=== PATIENT | female | born 1980 | race Caucasian/White ===

== ENCOUNTER → 2017-10-25 | Outpatient (CLI) | payer BC ==
--- NOTE | 2017-10-25 10:41 | MM ---
Reason for exam: additional evaluation requested from prior study. Last mammogram was performed 1 year and 1 month ago. History: Patient is postmenopausal. Family history of breast cancer in cousin at age 47 and breast cancer in cousin at age 53. Excisional biopsy of the left breast, 2003. Took hormonal contraceptives for 8 years beginning at age 19. Physical Findings: Nurse did not find any significant physical abnormalities on exam. MG Diagnostic Mammo w CAD OZZY Bilateral CC and MLO view(s) were taken. XCCL view(s) were taken of the right breast. Prior study comparison: September 12, 2016, bilateral MG diagnostic mammo w CAD OZZY. The breast tissue is heterogeneously dense. This may lower the sensitivity of mammography. Stable benign calcifications. There is chronic nodularity bilaterally.3 No significant new findings when compared with previous films. These results were verbally communicated with the patient and result sheet given to the patient on 10/25/17. ASSESSMENT: Benign, BI-RAD 2 RECOMMENDATION: Routine screening mammogram of both breasts in 1 year. Manage patient on a clinical basis.
== END ==
LOC: RADMAMWWP 08:53
PROVIDERS: ATTEND Obstetrics & Gynecology
DX: R92.8 Other abnormal and inconclusive findings on diagnostic imaging of breast (principal)
CPT/HCPCS: 77066

== ENCOUNTER → 2018-12-10 | Outpatient (CLI) | payer BC ==
--- NOTE | 2018-12-12 10:29 | MM ---
Reason for exam: screening (asymptomatic). Last mammogram was performed 1 year and 1 month ago. History: Patient is postmenopausal. Family history of breast cancer in cousin at age 47 and breast cancer in cousin at age 53. Excisional biopsy of the left breast, 2003. Took hormonal contraceptives for 8 years beginning at age 19. Physical Findings: A clinical breast exam by your physician is recommended on an annual basis and results should be correlated with mammographic findings. MG Screening Mammo w CAD Bilateral CC and MLO view(s) were taken. Prior study comparison: October 25, 2017, bilateral MG diagnostic mammo w CAD OZZY. September 12, 2016, bilateral MG diagnostic mammo w CAD OZZY. There are scattered fibroglandular densities. There is chronic nodularity bilaterally. Two medial nodules right CC view at an anterior depth and middle depth not seen on XCCL or MLO views. ASSESSMENT: Probably benign, BI-RAD 3 RECOMMENDATION: Follow-up diagnostic mammogram of the right breast in 6 months.
== END | disposition home or self-care (01) ==
LOC: RADMAMWWP 16:12
PROVIDERS: ATTEND Obstetrics & Gynecology
DX: Z12.31 Encounter for screening mammogram for malignant neoplasm of breast (principal)
CPT/HCPCS: 77067

== ENCOUNTER → 2019-06-24 | Outpatient (CLI) | payer BC ==
--- NOTE | 2019-06-25 08:07 | MM ---
Reason for exam: follow-up at short interval from prior study. Last mammogram was performed 6 months ago. History: Patient is postmenopausal. Family history of breast cancer in cousin at age 47 and breast cancer in cousin at age 53. Excisional biopsy of the left breast, 2003. Took hormonal contraceptives for 8 years beginning at age 19. Physical Findings: Nurse did not find any significant physical abnormalities on exam. MG Diagnostic Mammo RT w CAD CC and MLO view(s) were taken of the right breast. Prior study comparison: December 10, 2018, bilateral MG screening mammo w CAD. October 25, 2017, bilateral MG diagnostic mammo w CAD OZZY. There are scattered fibroglandular densities. There is a stable right central outer bilobed mass measuring 1.1cm at middle depth. Medial middle depth asymmetry is less conspicuous. Second smaller medial asymmetry seen on the prior at anterior depth is no longer seen. These results were verbally communicated with the patient and result sheet given to the patient on 06/24/19. ASSESSMENT: Benign, BI-RAD 2 RECOMMENDATION: Return to routine screening mammogram schedule for both breasts. Back on schedule.
== END ==
LOC: RADMAMWWP 15:31
PROVIDERS: ATTEND Obstetrics & Gynecology
DX: R92.8 Other abnormal and inconclusive findings on diagnostic imaging of breast (principal)
CPT/HCPCS: 77065

== ENCOUNTER → 2019-07-10 | Outpatient (CLI) | payer BC ==
--- NOTE | 2019-07-12 19:00 | MR ---
EXAMINATION TYPE: MR knee RT wo con DATE OF EXAM: 07/10/2019 COMPARISON: Plain film 06/26/2019 HISTORY: Rt knee pain, heard popping noise when getting up from seated position TECHNIQUE: Multiplanar, multisequence imaging of the right knee is performed without IV contrast. FINDINGS: Exam is somewhat limited technically. MEDIAL MENISCUS: There is pseudoextrusion of the medial meniscus. There is abnormal intrasubstance si gnal. The posterior horn the medial meniscus shows linear increased signal extending to the articular surfaces as well as attenuation. LATERAL MENISCUS: There is some increased signal along the anterior horn of the lateral meniscus with some extension to the articular surface questions on sagittal image 23, coronal image #16 CRUCIATE LIGAMENTS: Anterior cruciate ligament appears somewhat redundant but may be intact, posterio r cruciate ligament is intact COLLATERAL LIGAMENTS: The medial collateral ligament and lateral collateral ligament complex are inta ct and unremarkable. EXTENSOR MECHANISM: Visualized quadriceps and patellar tendons are intact. EFFUSION: Suprapatellar joint effusion is present. POPLITEAL CYST: No popliteal/hoffmann cyst. TRICOMPARTMENT SPACES: Joint space loss is present especially in the medial compartment, patellofemor al joint CARTILAGE: Grade IV chondromalacia posterior patella. Suspect grade III chondromalacia in the medial compartment, possibly lateral compartment BONE MARROW SIGNAL: Subchondral marrow signal changes suggest possible geode formation. OTHER: Subcutaneous edema change. Tricompartmental marginal spurring. IMPRESSION: Osteoarthritis. Probable degenerative tears of the menisci. Difficult to exclude tear of the anterior cruciate ligament. There is a joint effusion.
== END | disposition home or self-care (01) ==
LOC: RADMRIMAIN 16:49
PROVIDERS: ATTEND Orthopaedic Surgery
DX: M17.11 Unilateral primary osteoarthritis, right knee (principal)

== ENCOUNTER → 2019-08-04 | Outpatient (CLI) | payer BC ==
[2019-08-04 17:54] LABS: Potassium 4.1 mmol/L (3.5-5.1)
[2019-08-04 18:09] LABS: Basophils # (A) 0.1 k/uL (0-0.2); Basophils % (A) 1 %; Eosinophils # (A) 0.2 k/uL (0-0.7); Eosinophils % (A) 2 %; HCT 41.3 % (34.0-46.0); HGB 12.6 gm/dL (11.4-16.0); Lymphocytes # (A) 2.2 k/uL (1.0-4.8); Lymphocytes % (A) 29 %; MCH 28.5 pg (25.0-35.0); MCHC 30.6 g/dL (31.0-37.0); MCV 93.2 fL (80.0-100.0); Mean Platelet Volume 6.5; Monocytes # (A) 0.3 k/uL (0-1.0); Monocytes % (A) 4 %; Neutrophils # (A) 4.8 k/uL (1.3-7.7); Neutrophils % (A) 62 %; Platelet Count 358 k/uL (150-450); RBC 4.43 m/uL (3.80-5.40); RDW 14.3 % (11.5-15.5); WBC 7.8 k/uL (3.8-10.6)
== END | disposition home or self-care (01) ==
LOC: LABPAT 17:21
PROVIDERS: ATTEND Orthopaedic Surgery
DX: Z01.812 Encounter for preprocedural laboratory examination (principal); M23.91 Unspecified internal derangement of right knee
CPT/HCPCS: 36415; 80051; 85025

== ENCOUNTER 2019-08-12 08:06 | Day surgery (SDC) | payer BC ==
[2019-08-07 13:53] VITALS: BMI 62.1
--- NOTE | 2019-08-11 16:06 | HP ---
HISTORY AND PHYSICAL DATE OF SURGERY: 08/12/2019 Wan Palacio is a 38-year-old patient seen with progressive right knee pain. After treatment options were discussed with her, she elected to proceed with right knee arthroscopy. Consent was obtained. PAST MEDICAL HISTORY: Noncontributory. PAST SURGICAL HISTORY: 1. Breast biopsy. 2. . 3. Cholecystectomy. 4. Knee arthroscopy. DAILY MEDICATIONS: Multivitamins. ALLERGIES: 1. AMOXICILLIN. 2. AUGMENTIN. SOCIAL HISTORY: Patient denies tobacco use. PHYSICAL EVALUATION OF THE RIGHT KNEE: Range of motion is minus 2/3 to 90. Mild effusion. Tenderness, lateral joint line. Positive lateral Jarrett's. Ligaments stable. Hip rotation without pain. Distal neurovascular exam is intact. RADIOGRAPHS: Radiographs of the right knee revealed osteoarthritic changes. An MRI of the right knee revealed meniscal tears. IMPRESSION: 1. Internal derangement of right knee with medial and lateral meniscal tears. 2. Morbid obesity. PLAN: Right knee arthroscopy with partial meniscectomy and debridement. MMODL / IJN: [id number] /
[~2019-08-12 08:06] MED LIST: DEXAMETHASONE SOD PHOSPHATE 10 MG/ML 1 ML VIAL IV ONE; LACTATED RINGERS 1,000 ML IV SCH; LIDOCAINE 1% 20 ML VIAL (10MG/ML) FOR IV START INTRADERMA PRN; MIDAZOLAM 2 MG/2 ML VIAL IV PRN; ONDANSETRON 4 MG/2 ML VIAL IVP ONE; SCOPOLAMINE 1.5MG/72HR PATCH TRANSDERM ONE; ceFAZolin 3 GM in SODIUM CHLORIDE 0.9% 100 ML IVPB ONE
[2019-08-12] MEDS ORDERED: SUCCINYLCHOLINE CHLORIDE VIAL 200 MG/10 ML VIAL IV ONE (09:53)
[2019-08-12] MEDS ORDERED: PROPOFOL 10 MG/ML 20 ML VIAL IV ONE (09:53)
[2019-08-12] MEDS ORDERED: LIDOCAINE 1% INJ 10MG/ML (20 ML MDV) ONE (09:53)
[2019-08-12] MEDS ORDERED: fentaNYL (PF) 50 MCG/ML 2 ML AMP ONE (09:53)
[2019-08-12] MEDS ORDERED: KETOROLAC 30 MG/ML 1 ML VIAL ONE (09:53)
[2019-08-12] MEDS ORDERED: KETAMINE 10 MG/ML 20 ML VIAL ONE (09:53)
[2019-08-12] MEDS ORDERED: MIDAZOLAM 2 MG/2 ML VIAL ONE (09:53)
[2019-08-12] MEDS ORDERED: BUPIVACAINE (PF) 0.25% 30 ML VIAL SQ ONE (10:14)
[2019-08-12 10:56] VITALS: TEMP 97.7
--- NOTE | 2019-08-12 10:59 | P.OP ---
Date of Procedure: 08/12/19 Preoperative Diagnosis: Internal derangement right knee Postoperative Diagnosis: 1. Tear medial meniscus right knee 2. Grade 4 chondromalacia medial femoral condyle right knee 3. Reactive synovitis medial, lateral and suprapatellar compartments right knee Procedure(s) Performed: 1. Arthroscopic partial medial meniscectomy right knee 2. Arthroscopic chondroplasty medial femoral condyle right knee 3. Arthroscopic microfracture medial femoral condyle right knee 4. Arthroscopic partial synovectomy medial, lateral and suprapatellar compartments right knee Anesthesia: ALFONSOA, local Surgeon: Crescencio Shelton Estimated Blood Loss (ml): 6 Pathology: none sent Condition: stable Disposition: PACU Indications for Procedure: 38-year-old patient seen with progressive right knee pain. After treatment options were discussed, she elected to proceed with arthroscopy Operative Findings: See description of procedure Description of Procedure: Patient was taken to the operative suite. Patient underwent a general anesthetic by the department of anesthesia. Patient was given preoperative antibiotics. The right lower extremity was placed in a well-padded arthroscopic leg larry. The right leg was prepped and draped in the normal sterile orthopedic fashion. A lateral parapatellar and suprapatellar incision was made. Trochars were inserted. Arthroscopy was initiated. Suprapatellar pouch revealed diffuse thick reactive synovitis. The patellofemoral joint appeared to articulate congruently. There was grade 1/2 chondromalacia of the patella with no osteochondral tears present. The scope was guided into the medial gutter. No loose bodies or plica were identified. The scope was then guided into the medial compartment. A medial parapatellar incision was made. Trocar inserted followed by probe. There was a complex tear involving the posterior horn medial meniscus. There were grade 4 chondromalacia changes of the medial femoral condyle. There was thick reactive synovitis anteriorly. I performed a partial medial meniscectomy getting down to stable meniscal tissue. I performed a chondroplasty of the medial femoral condyle down to stable tissue. I performed a partial synovectomy decompressing the reactive synovitis. There was good decompression of the synovitis. The residual meniscus was stable. There was an area of exposed bone weightbearing surface medial femoral condyle. I performed a microfracture to the area penetrating the bone with resultant bleeding at the microfracture site. The residual osteochondral surface appeared stable. Scope and probe were then guided into the intercondylar notch. Cruciates were identified, probed and found to be somewhat frayed but overall intact. The scope and probe were then guided into lateral compartment. There was some mild fraying along the superficial area of the lateral meniscus. There were grade 2 chondromalacia changes of the lateral femoral condyle. No osteochondral flap tears were present. There was thick reactive synovitis anteriorly. Motorize shaver was introduced. I debrided those frayed margins of meniscal tissue. I performed a partial synovectomy decompressing the thick reactive synovitis. There was good decompression synovitis. The scope was in guided back into the suprapatellar compartment. I introduced a motorized shaver into the suprapatellar compartment. I debrided piecemeal fragments of meniscus I e ncountered. I performed a partial synovectomy decompressing the reactive synovitis. Instruments were now removed from the joint. The joint was infiltrated with .25% Marcaine. Steri-Strips were applied to the portal sites. Sterile dressings were applied. The patient was placed into a ELODIA hose. No tourniquet was utilized. The patient was awakened, transferred to a bed and taken to recovery stable satisfactory condition.
[2019-08-12] MEDS: HYDROmorphone 0.5 MG/0.5 ML SYRINGE IVP PRN ×2 (11:11→11:19)
[2019-08-12] MEDS ORDERED: ONDANSETRON 4 MG/2 ML VIAL IVP ONE (11:19)
[2019-08-12] MEDS ORDERED: HYDROcodone/APAP 5-325MG 1 EACH TAB PO ONE (12:28)
[2019-08-12 12:44] VITALS: RESP 16
[2019-08-12 12:58] VITALS: BP 130/83; PULSE 99
== END 2019-08-12 13:27 | disposition home or self-care (01) ==
LOC: OR 08:06
PROVIDERS: ATTEND Orthopaedic Surgery
DX: S83.241A Other tear of medial meniscus, current injury, right knee, initial encounter (principal); X58.XXXA Exposure to other specified factors, initial encounter; M22.41 Chondromalacia patellae, right knee; M65.861 Other synovitis and tenosynovitis, right lower leg; I10 Essential (primary) hypertension; M19.90 Unspecified osteoarthritis, unspecified site; R06.83 Snoring; Z90.49 Acquired absence of other specified parts of digestive tract; Z88.5 Allergy status to narcotic agent; Z88.0 Allergy status to penicillin
CPT/HCPCS: 81025; 29881; 29876; 29879; J2250; J0330; J1100; J0690; J2405; J2001; J3010; J1885; J2704; J1170

== ENCOUNTER → 2020-03-29 | Outpatient (CLI) | payer BC ==
--- NOTE | 2020-03-31 08:06 | MM ---
Reason for exam: screening (asymptomatic). Last mammogram was performed 9 months ago. History: Patient is postmenopausal. Family history of breast cancer in cousin at age 47 and breast cancer in cousin at age 53. Excisional biopsy of the left breast, 2003. Took hormonal contraceptives for 8 years beginning at age 19. Physical Findings: A clinical breast exam by your physician is recommended on an annual basis and results should be correlated with mammographic findings. MG Screening Mammo w CAD Bilateral CC and MLO view(s) were taken. Prior study comparison: June 24, 2019, right breast MG diagnostic mammo RT w CAD. December 10, 2018, bilateral MG screening mammo w CAD. There are scattered fibroglandular densities. There is chronic nodularity bilaterally. No significant changes when compared with prior studies. ASSESSMENT: Benign, BI-RAD 2 RECOMMENDATION: Routine screening mammogram of both breasts in 1 year.
== END | disposition home or self-care (01) ==
LOC: RADMAMWWP 13:41
PROVIDERS: ATTEND Obstetrics & Gynecology
DX: Z12.31 Encounter for screening mammogram for malignant neoplasm of breast (principal)
CPT/HCPCS: 77067

== ENCOUNTER 2020-06-29 08:15 | Day surgery (SDC) | payer BC ==
[2020-06-28 10:58] VITALS: BMI 61.2
[~2020-06-29 08:15] MED LIST changes: +LIDOCAINE 1% (10MG/ML) FOR IV START INTRADERMA PRN; -LIDOCAINE 1% 20 ML VIAL (10MG/ML) FOR IV START INTRADERMA PRN; -MIDAZOLAM 2 MG/2 ML VIAL IV PRN; -ceFAZolin 3 GM in SODIUM CHLORIDE 0.9% 100 ML IVPB ONE
[2020-06-29 08:40] VITALS: RESP 16; TEMP 97.6
[2020-06-29] MEDS ORDERED: PROPOFOL 10 MG/ML 20 ML VIAL IV ONE (09:16)
[2020-06-29] MEDS ORDERED: LIDOCAINE 1% INJ 10MG/ML (20 ML MDV) ONE (09:16)
[2020-06-29] MEDS ORDERED: ONDANSETRON 4 MG/2 ML VIAL ONE (09:16)
--- NOTE | 2020-06-29 09:33 | P.PCN ---
Date of Procedure: 06/29/20 Procedure(s) Performed: BRIEF HISTORY: Patient is a 39-year-old pleasant [place] female scheduled for an elective colonoscopy as a part of screening for colorectal neoplasia. Her brother was diagnosed with colon cancer at age 43. Also has family history of colon cancer diagnosed in her paternal grandmother and her first cousin on the same side a family. PROCEDURE PERFORMED: Colonoscopy. PREOPERATIVE DIAGNOSIS: Screening for colon cancer/family history of colon cancer. IV sedation per Anesthesia. PROCEDURE: After informed consent was obtained, the patient, was brought into the endoscopy unit. IV sedation was administered by Anesthesia under continuous monitoring. Digital rectal examination was normal. Initially the Olympus CF-160 flexible video colonoscope was then inserted in the rectum, gradually advanced into the cecum without any difficulty. Careful examination was performed as the scope was gradually being withdrawn. Ileocecal valve and the appendiceal orifice were visualized and appeared normal. Prep was excellent. Mucosa of the cecum, ascending colon, transverse colon, descending colon, sigmoid colon, and rectum appeared normal. Retroflexion was performed in the rectum and no lesions were seen. The patient tolerated the procedure well. IMPRESSION: Normal-appearing colon from rectum to cecum with no evidence of colorectal neoplasia . RECOMMENDATIONS: Findings of this examination were discussed with the patient as well as her family. She was advised to have a repeat screening colonoscopy in 5 years from now because of the family history of colon cancer.
[2020-06-29 10:01] VITALS: BP 124/84; PULSE 88
== END 2020-06-29 10:31 | disposition home or self-care (01) ==
LOC: ORWHC2ENDO 08:15
PROVIDERS: ATTEND Internal Medicine Gastroenterology
DX: Z12.11 Encounter for screening for malignant neoplasm of colon (principal); M19.90 Unspecified osteoarthritis, unspecified site; E66.9 Obesity, unspecified; Z80.0 Family history of malignant neoplasm of digestive organs; Z68.44 Body mass index [BMI] 60.0-69.9, adult; Z88.1 Allergy status to other antibiotic agents; Z91.011 Allergy to milk products; Z88.5 Allergy status to narcotic agent; Z91.89 Other specified personal risk factors, not elsewhere classified; Z87.898 Personal history of other specified conditions
CPT/HCPCS: 81025; J2405; J2001; J2704; G0105; 45378

== ENCOUNTER → 2020-09-27 | Outpatient (CLI) | payer BC ==
--- NOTE | 2020-09-27 18:00 | ECHOF ---
Referral Reason:R00.2 Palpitations MEASUREMENTS -------- HEIGHT: 157.5 cm WEIGHT: 159.7 kg BP: RVIDd: 3.7 cm (< 3.3) IVSd: 1.1 cm (0.6 - 1.1) LVIDd: 5.0 cm (3.9 - 5.3) LVPWd: 1.4 cm (0.6 - 1.1) IVSs: 1.3 cm LVIDs: 4.0 cm LVPWs: 1.4 cm LA Diam: 3.7 cm (2.7 - 3.8) Ao Diam: 3.2 cm (2.0 - 3.7) LA Diam: 4.6 cm (2.7 - 3.8) MV EXCURSION: 20.390 mm (> 18.000) MV EF SLOPE: 74 mm/s (70 - 150) EPSS: 1.1 cm MV E Mitch: 0.56 m/s MV DecT: 197 ms MV A Mitch: 0.66 m/s MV E/A Ratio: 0.85 FINDINGS -------- Sinus rhythm. Morbid Obesity This was a techncally difficult study with suboptimal views, , Lumason utilized for enhancement of images. LV size, wall thickness and systolic function are normal, with an EF greater than 55%. The left chantell tricular size is normal. The right ventricle is normal in size. The left atrial size is normal. The right atrial size is normal. The aortic valve was not well visualized. The mitral valve was not well visualized. The tricuspid valve was not well visualized. Unable to estimate RVSP due to inadequate TR jet spect ral doppler profile. The pulmonic valve was not well visualized. The aortic root size is normal. There is no pericardial effusion. CONCLUSIONS -------- 1. Morbid Obesity 2. This was a techncally difficult study with suboptimal views, , Lumason utilized for enhancement of images. 3. LV size, wall thickness and systolic function are normal, with an EF greater than 55%. 4. The left ventricular size is normal. 5. The right ventricle is normal in size. 6. The left atrial size is normal. 7. The right atrial size is normal. 8. The aortic root size is normal. 9. There is no pericardial effusion. [employer]: Zoe Clarke RDCS
== END | disposition home or self-care (01) ==
LOC: RADECHMAIN 11:15
PROVIDERS: ATTEND Family Medicine
DX: E66.01 Morbid (severe) obesity due to excess calories (principal); Z68.44 Body mass index [BMI] 60.0-69.9, adult
CPT/HCPCS: 93306; Q9950

== ENCOUNTER → 2021-01-12 | Outpatient (CLI) | payer BC ==
--- NOTE | 2021-01-12 13:22 | XR ---
EXAMINATION TYPE: XR bone survey complete DATE OF EXAM: 01/12/2021 COMPARISON: NONE HISTORY: Abnormal blood work Bony calvarium : 2 views of the bony calvarium demonstrate. Hyperostosis of the frontal bone. Spine: Two views of the cervical, thoracic and lumbar spines are submitted. Multilevel degenerative disc disease with posterior cervical spondylosis C5-C6. Hypertrophic and degenerative changes seen th roughout the thoracic spine and lumbar spine. PELVIS: Single view of the pelvis demonstrates. Arthropathy of the hips bilaterally. UPPER EXTREMITIES: Two views of the upper extremities. No osseous lesions LOWER EXTREMITIES: 2 views of the lower extremities. Arthropathy of the is IMPRESSION: 1. No diagnostic evidence of intraosseous lesion.
[2021-01-13 12:39] LABS: Free Kappa Lt Chain Qnt, Serum 3.54 mg/dL (0.33-1.94); Immunoglobulin M 74.7 mg/dL (40.0-280.0)
== END | disposition home or self-care (01) ==
LOC: LABWHC1 08:45
PROVIDERS: ATTEND Internal Medicine Hematology & Oncology
DX: M12.9 Arthropathy, unspecified (principal); Z71.3 Dietary counseling and surveillance
CPT/HCPCS: 36415; 77075; 82784; 83883

== ENCOUNTER → 2021-07-03 | Outpatient (CLI) | payer BC ==
--- NOTE | 2021-07-05 09:28 | MM ---
Reason for exam: screening (asymptomatic). Last mammogram was performed 1 year and 3 months ago. History: Patient is postmenopausal. Family history of breast cancer in cousin at age 47 and breast cancer in cousin at age 53. Excisional biopsy of the left breast, 2003. Took hormonal contraceptives for 8 years beginning at age 19. Physical Findings: A clinical breast exam by your physician is recommended on an annual basis and results should be correlated with mammographic findings. MG Screening Mammo w CAD Bilateral CC and MLO view(s) were taken. Prior study comparison: March 29, 2020, bilateral MG screening mammo w CAD. June 24, 2019, right breast MG diagnostic mammo RT w CAD. December 10, 2018, bilateral MG screening mammo w CAD. October 25, 2017, bilateral MG diagnostic mammo w CAD OZZY. There are scattered fibroglandular densities. There is chronic nodularity bilaterally. No significant changes when compared with prior studies. ASSESSMENT: Benign, BI-RAD 2 RECOMMENDATION: Routine screening mammogram of both breasts in 1 year.
== END | disposition home or self-care (01) ==
LOC: RADMAMWWP 16:14
PROVIDERS: ATTEND Obstetrics & Gynecology
DX: Z12.31 Encounter for screening mammogram for malignant neoplasm of breast (principal); Z78.0 Asymptomatic menopausal state
CPT/HCPCS: 77067

== ENCOUNTER 2022-01-05 06:44 | Emergency (ER) | payer BC ==
[2022-01-05 07:19] VITALS: TEMP 97
--- NOTE | 2022-01-05 08:01 | ED ---
General Adult HPI - General Chief complaint: Recheck/Abnormal Lab/Rx Stated complaint: High potassium Time Seen by Provider: 01/05/22 07:15 Source: patient, RN notes reviewed, old records reviewed Mode of arrival: ambulatory Limitations: no limitations - History of Present Illness Initial comments: This is a 41-year-old female presents emergency department stating that she got a call for stating that her potassium was elevated. Patient states she is asymptomatic per patient denies any chest pain or palpitations. Patient denies any difficulty breathing shortest breath per patient denies any fever chills or cough. Patient denies any abdominal pain patient denies any nausea vomiting diarrhea. - Related Data Home Medications Medication Instructions Recorded Confirmed No Known Home Medications 06/28/20 01/05/22 Allergies Allergy/AdvReac Type Severity Reaction Status Date / Time milk Allergy Anaphylaxis Verified 01/05/22 08:16 Penicillins AdvReac Diarrhea - Verified 01/05/22 08:16 see comments Sulfa (Sulfonamide AdvReac Diarrhea Verified 01/05/22 08:16 Antibiotics) tramadol AdvReac extreme Verified 01/05/22 08:16 tiredness oral antibiotics AdvReac Diarrhea Uncoded 01/05/22 08:16 Review of Systems ROS Statement: Those systems with pertinent positive or pertinent negative responses have been documented in the HPI. ROS Other: All systems not noted in ROS Statement are negative. Past Medical History Past Medical History: Osteoarthritis (OA) History of Any Multi-Drug Resistant Organisms: None Reported Past Surgical History: Breast Surgery, Section, Cholecystectomy, Orthopedic Surgery, Uterine Ablation Additional Past Surgical History / Comment(s): arthroscopies estrellita knees,fibroadenoma tumor removed lt breast. endovenout ablation on legs. Past Anesthesia/Blood Transfusion Reactions: Motion Sickness, Postoperative Nausea & Vomiting (PONV) Past Psychological History: No Psychological Hx Reported Smoking Status: Never smoker Past Alcohol Use History: None Reported Past Drug Use History: None Reported - Past Family History Brother(s) Family Medical History: Cancer Additional Family Medical History / Comment(s): brother dx at age 43 colon CA Father Additional Family Medical History / Comment(s): paternal grandmother colon CA General Exam - General Exam Comments Initial Comments: GENERAL: Patient is well-developed and well-nourished. Patient is nontoxic and well- hydrated and is in mild distress. ENT: Neck is soft and supple. No significant lymphadenopathy is noted. Oropharynx is clear. Moist mucous membranes. Neck has full range of motion without eliciting any pain. EYES: The sclera were anicteric and conjunctiva were pink and moist. Extraocular movements were intact and pupils were equal round and reactive to light. Eyelids were unremarkable. PULMONARY: Unlabored respirations. Good breath sounds bilaterally. No audible rales rhonchi or wheezing was noted. CARDIOVASCULAR: There is a regular rate and rhythm without any murmurs gallops or rubs. ABDOMEN: Soft and nontender with normal bowel sounds. SKIN: Skin is clear with no lesions or rashes and otherwise unremarkable. NEUROLOGIC: Patient is alert and oriented x3. Cranial nerves II through XII are grossly intact. Motor and sensory are also intact. Normal speech, volume and content. Symmetrical smile. MUSCULOSKELETAL: Normal extremities with adequate strength and full range of motion. LYMPHATICS: No significant lymphadenopathy is noted PSYCHIATRIC: Normal psychiatric evaluation. Limitations: no limitations Course Vital Signs 01/05/22 01/05/22 07:15 08:19 Temperature 97 F L Pulse Rate 100 96 Respiratory 18 16 Rate Blood Pressure 151/85 145/64 O2 Sat by Pulse 100 95 Oximetry Medical Decision Making - Medical Decision Making EKG shows sinus rhythm at 89 bpm [place] interval is on a 47 QRS is 78 QT interval 335 QTC is 381. Patient's EKG shows no ST segment elevation or depression. The patient's repeat potassium was 5.6 with hemolysis. I discussed repeating this with the patient about because we knew the repeat would be lower she was okay to follow-up with her doctor and get a repeat test and a couple of days. - Lab Data Result diagrams: 01/05/22 07:56 01/05/22 08:30 Lab Results 01/05/22 01/05/22 Range/Units 07:56 08:30 WBC 6.4 (3.8-10.6) k/uL RBC 4.32 (3.80-5.40) m/uL Hgb 13.1 (11.4-16.0) gm/dL Hct 39.4 (34.0-46.0) % MCV 91.1 (80.0-100.0) fL MCH 30.3 (25.0-35.0) pg MCHC 33.2 (31.0-37.0) g/dL RDW 14.1 (11.5-15.5) % Plt Count 325 (150-450) k/uL MPV 7.4 Neutrophils % 64 % Lymphocytes % 27 % Monocytes % 5 % Eosinophils % 2 % Basophils % 0 % Neutrophils # 4.1 (1.3-7.7) k/uL Lymphocytes # 1.8 (1.0-4.8) k/uL Monocytes # 0.3 (0-1.0) k/uL Eosinophils # 0.1 (0-0.7) k/uL Basophils # 0.0 (0-0.2) k/uL Sodium 134 L (137-145) mmol/L Potassium 5.6 H (3.5-5.1) mmol/L Chloride 105 (98-107) mmol/L Carbon Dioxide 25 (22-30) mmol/L Anion Gap 4 mmol/L BUN 13 (7-17) mg/dL Creatinine 0.61 (0.52-1.04) mg/dL Est GFR (CKD-EPI)AfAm >90 (>60 ml/min/1.73 sqM) Est GFR (CKD-EPI)NonAf >90 (>60 ml/min/1.73 sqM) Glucose 101 H (74-99) mg/dL Calcium 8.3 L (8.4-10.2) mg/dL Magnesium 1.9 (1.6-2.3) mg/dL Total Bilirubin 1.1 (0.2-1.3) mg/dL AST 27 (14-36) U/L ALT 20 (4-34) U/L Alkaline Phosphatase 96 (38-126) U/L Total Protein 7.9 (6.3-8.2) g/dL Albumin 3.6 (3.5-5.0) g/dL Disposition Clinical Impression: Abnormal laboratory test Disposition: HOME SELF-CARE Condition: Good Instructions (If sedation given, give patient instructions): Hyperkalemia (ED) Additional Instructions: Patient should follow-up in 2-3 days to get a repeat potassium done. Is patient prescribed a controlled substance at d/c from ED?: No Referrals: Weston Ward MD [Primary Care Provider] - 1-2 days Time of Disposition: 09:57
[2022-01-05 08:28] LABS: Basophils % (A) 0 %; Eosinophils # (A) 0.1 k/uL (0-0.7); Eosinophils % (A) 2 %; HCT 39.4 % (34.0-46.0); HGB 13.1 gm/dL (11.4-16.0); Lymphocytes # (A) 1.8 k/uL (1.0-4.8); Lymphocytes % (A) 27 %; MCH 30.3 pg (25.0-35.0); MCHC 33.2 g/dL (31.0-37.0); MCV 91.1 fL (80.0-100.0); Mean Platelet Volume 7.4; Monocytes # (A) 0.3 k/uL (0-1.0); Monocytes % (A) 5 %; Neutrophils # (A) 4.1 k/uL (1.3-7.7); Neutrophils % (A) 64 %; Platelet Count 325 k/uL (150-450); RBC 4.32 m/uL (3.80-5.40); RDW 14.1 % (11.5-15.5); WBC 6.4 k/uL (3.8-10.6)
[2022-01-05 08:58] VITALS: BP 145/64; PULSE 96; RESP 16
[2022-01-05 09:02] LABS: AST 27 U/L (14-36); African American GFR (CKD) >90 (>60 ml/min/1.73 sqM); Anion Gap 4 mmol/L; Blood Urea Nitrogen 13 mg/dL (7-17); Calcium 8.3 mg/dL (8.4-10.2); Carbon Dioxide 25 mmol/L (22-30); Chloride 105 mmol/L (98-107); Glucose 101 mg/dL (74-99); Non-African American GFR(CKD) >90 (>60 ml/min/1.73 sqM); Sodium 134 mmol/L (137-145); Total Bilirubin 1.1 mg/dL (0.2-1.3)
[2022-01-05 09:24] LABS: Potassium 5.6 mmol/L (3.5-5.1); Total Protein 7.9 g/dL (6.3-8.2)
[2022-01-05 09:25] LABS: ALT 20 U/L (4-34); Alkaline Phosphatase 96 U/L (38-126); Magnesium 1.9 mg/dL (1.6-2.3)
[2022-01-05 09:26] LABS: Albumin 3.6 g/dL (3.5-5.0)
== END 2022-01-05 10:21 | disposition home or self-care (01) ==
LOC: EC 06:44
DX: R79.9 Abnormal finding of blood chemistry, unspecified (principal); M19.90 Unspecified osteoarthritis, unspecified site; Z88.1 Allergy status to other antibiotic agents; Z88.0 Allergy status to penicillin; Z88.2 Allergy status to sulfonamides; Z90.49 Acquired absence of other specified parts of digestive tract
CPT/HCPCS: 36415; 80053; 83735; 85025; 93005; 99285

== ENCOUNTER → 2022-09-25 | Outpatient (CLI) | payer BC ==
--- NOTE | 2022-09-25 13:25 | US ---
EXAMINATION TYPE: US venous doppler duplex LE RT DATE OF EXAM: 09/25/2022 1:10 PM COMPARISON: NONE CLINICAL HISTORY: RIGHT LE; R22.41. Pt states right leg swelling SIDE PERFORMED: Right TECHNIQUE: The lower extremity deep venous system is examined utilizing real time linear array sonog anupam with graded compression, doppler sonography and color-flow sonography. VESSELS IMAGED: Common Femoral Vein Deep Femoral Vein Greater Saphenous Vein * Femoral Vein Popliteal Vein Small Saphenous Vein * Proximal Calf Veins (* superficial vessels) Grayscale, color doppler, spectral doppler imaging performed of the deep veins of the lower extremiti es. There is normal flow, compressibility, vascular waveforms. Difficult exam due to severe pt morbid obesity Right Leg: Negative for DVT IMPRESSION: Limited examination due to patient's body habitus. No ultrasound evidence for deep venous thrombosis of the right lower extremity.
== END | disposition home or self-care (01) ==
LOC: RADUSWWP 12:47
PROVIDERS: ATTEND Family Medicine
DX: R22.41 Localized swelling, mass and lump, right lower limb (principal)

== ENCOUNTER → 2022-11-05 | Outpatient (CLI) | payer BC ==
--- NOTE | 2022-11-06 20:49 | MM ---
Reason for Exam: Screening (asymptomatic). Last mammogram was performed 1 year(s) and 4 month(s) ago. Patient History: Menarche at age 9. First Full-Term at age 28. Late child-bearing (after 28). Postmenopausal. Hormonal Contraceptives for 8 years from age 19 until age 27. 2004, Excisional Biopsy on the Left side. Maternal cousin had breast cancer, age 47. Maternal cousin had breast cancer, age 53. Risk Values: Yani 5 year model risk: 1.8%. NCI Lifetime model risk: 17.1%. Prior Study Comparison: 06/24/2019 Right Diagnostic Mammogram, [facility]. 03/29/2020 Bilateral Screening Mammogram, [facility]. 07/03/2021 Bilateral Screening Mammogram, [facility]. Tissue Density: There are scattered fibroglandular densities. Findings: Analyzed By CAD. Chronic bilateral circumscribed nodularity in a benign pattern. There is no suspicious group of microcalcifications or new suspicious mass in either breast. Overall Assessment: Benign, BI-RAD 2 Management: Screening Mammogram of both breasts in 1 year. 1. Patient should continue monthly self breast exams. 2. A clinical breast exam by your physician is recommended on an annual basis. 3. This exam should not preclude additional follow-up of suspicious palpable abnormalities. Electronically signed and approved by: Montserrat Caceres M.D. Radiologist
== END | disposition home or self-care (01) ==
LOC: RADMAMWWP 16:22
PROVIDERS: ATTEND Obstetrics & Gynecology
DX: Z12.31 Encounter for screening mammogram for malignant neoplasm of breast (principal); Z78.0 Asymptomatic menopausal state; Z80.3 Family history of malignant neoplasm of breast
CPT/HCPCS: 77063; 77067

== ENCOUNTER → 2022-11-17 | Outpatient (CLI) | payer BC ==
[2022-11-17 11:26] LABS: Basophils # (A) 0.02 X 10*3/uL (0.00-0.10); Basophils % (A) 0.3 %; Eosinophils # (A) 0.05 X 10*3/uL (0.04-0.35); Eosinophils % (A) 0.7 %; HCT 40.1 % (37.2-46.3); HGB 12.7 g/dL (12.0-15.0); Immature Grans, Automated 0.3 %; Lymphocytes # (A) 2.23 X 10*3/uL (0.90-5.00); Lymphocytes % (A) 32.6 %; MCH 28.5 pg (27.0-32.0); MCHC 31.7 g/dL (32.0-37.0); MCV 89.9 fL (80.0-97.0); Mean Platelet Volume 9.7 fL (9.5-12.2); Monocytes % (A) 4.4 %; NRBC Per 100 WBC 0 /100 WBCS (0.0-0.0); Neutrophils # (A) 4.22 X 10*3/uL (1.80-7.70); Neutrophils % (A) 61.7 %; Platelet Count 327 X 10*3/uL (140-440); RBC 4.46 X 10*6/uL (4.10-5.20); RDW 14.4 % (11.5-14.5); WBC 6.84 X 10*3/uL (4.50-10.00)
[2022-11-17 11:47] LABS: ALT 25 U/L (8-44); AST 20 U/L (13-35); African American GFR (CKD) 128.5 (60.0-200.0); Albumin 3.7 g/dL (3.8-4.9); Albumin/Globulin Ratio 0.97 (1.60-3.17); Alkaline Phosphatase 97 U/L (41-126); Blood Urea Nitrogen 9.9 mg/dL (9.0-27.0); Chloride 104 mmol/L (96-109); Chol/HDL Ratio 3.45 Ratio; Globulin 3.8 g/dL (1.6-3.3); Glucose 95 mg/dL (70-110); LDL Cholesterol,Calculated 109.3 mg/dL (0.0-131.0); Non-African American GFR(CKD) 110.9 (60.0-200.0); Potassium 4.5 mmol/L (3.5-5.5); Sodium 138 mmol/L (135-145); Total Protein 7.5 g/dL (6.2-8.2); VLDL Calculation 17.84 mg/dL (5.00-40.00)
[2022-11-17 11:48] LABS: Erythrocyte Sedimentation Rate 102 mm/Hr (0-20)
== END | disposition home or self-care (01) ==
LOC: LABWHC1 09:04
PROVIDERS: ATTEND Family Medicine
DX: Z00.00 Encounter for general adult medical examination without abnormal findings (principal); S83.206A Unspecified tear of unspecified meniscus, current injury, right knee, initial encounter; Y99.9 Unspecified external cause status
CPT/HCPCS: 36415; 80053; 80061; 83036; 84443; 85025; 85652

== ENCOUNTER → 2023-10-17 | Outpatient (CLI) | payer BC ==
[2023-10-17 15:06] LABS: Basophils # (A) 0.01 X 10*3/uL (0.00-0.10); Basophils % (A) 0.2 %; Eosinophils # (A) 0.08 X 10*3/uL (0.04-0.35); Eosinophils % (A) 1.4 %; HGB 12.6 g/dL (12.0-15.0); Lymphocytes # (A) 1.85 X 10*3/uL (0.90-5.00); Lymphocytes % (A) 32.7 %; MCH 27.6 pg (27.0-32.0); MCHC 31.5 g/dL (32.0-37.0); MCV 87.5 FL (80.0-97.0); Mean Platelet Volume 9.9 FL (9.5-12.2); Monocytes # (A) 0.32 X 10*3/uL (0.20-1.00); Monocytes % (A) 5.7 %; NRBC Per 100 WBC 0 X 10*3/uL (0.00-0.01); Neutrophils # (A) 3.38 X 10*3/uL (1.80-7.70); Neutrophils % (A) 59.8 %; Platelet Count 308 X 10*3/uL (140-440); RBC 4.57 X 10*6/uL (4.10-5.20); RDW 14.9 % (11.5-14.5); WBC 5.65 X 10*3/uL (4.50-10.00)
[2023-10-17 15:29] LABS: Chol/HDL Ratio 3.28 Ratio; Erythrocyte Sedimentation Rate 87 mm/Hr (0-20); LDL Cholesterol,Calculated 108.6 mg/dL (0.0-131.0); Uric Acid 4.3 mg/dL (2.9-7.7); VLDL Calculation 16.48 mg/dL (5.00-40.00)
[2023-10-17 15:30] LABS: ALT 31 U/L (8-44); AST 20 U/L (13-35); Albumin 3.9 g/dL (3.8-4.9); Albumin/Globulin Ratio 1.03 Ratio (1.60-3.17); Alkaline Phosphatase 86 U/L (41-126); BUN/Creat Ratio 17.29 Ratio (12.00-20.00); Blood Urea Nitrogen 12.1 mg/dL (9.0-27.0); Calcium 9.1 mg/dL (8.7-10.3); Carbon Dioxide 25.1 mmol/L (21.6-31.8); Chloride 101 mmol/L (96-109); Globulin 3.8 g/dL (1.6-3.3); Glucose 94 mg/dL (70-110); Potassium 4.5 mmol/L (3.5-5.5); Rheumatoid Factor, Qnt <15 IU/mL (0-15); Sodium 137 mmol/L (135-145); Total Bilirubin 0.9 mg/dL (0.3-1.2); Total Protein 7.7 g/dL (6.2-8.2)
== END | disposition home or self-care (01) ==
LOC: LABWHC1 09:43
PROVIDERS: ATTEND Family Medicine
DX: Z00.01 Encounter for general adult medical examination with abnormal findings (principal); M25.50 Pain in unspecified joint
CPT/HCPCS: 36415; 80053; 80061; 84443; 84550; 85025; 85652; 86038; 86140; 86431

== ENCOUNTER → 2024-01-01 | Outpatient (CLI) | payer BC ==
--- NOTE | 2024-01-05 17:57 | MM ---
Reason for Exam: Screening (asymptomatic). Last mammogram was performed 1 year(s) and 2 month(s) ago. Patient History: Menarche at age 9. First Full-Term at age 28. Late child-bearing (after 28). Postmenopausal. Hormonal Contraceptives for 8 years from age 19 until age 27. 2004, Excisional Biopsy on the Left side. Maternal cousin had breast cancer, age 47. Maternal cousin had breast cancer, age 53. Risk Values: Yani 5 year model risk: 2.0%. NCI Lifetime model risk: 16.9%. Prior Study Comparison: 03/29/2020 Bilateral Screening Mammogram, [facility]. 07/03/2021 Bilateral Screening Mammogram, [facility]. 11/05/2022 Bilateral MG 3D screening mammo w/cad, [facility]. Tissue Density: There are scattered areas of fibroglandular density. Findings: Analyzed By CAD. Chronic bilateral nodularity. There is no suspicious group of microcalcifications or new suspicious mass in either breast. Overall Assessment: Benign, BI-RAD 2 Management: Screening Mammogram of both breasts in 1 year. . Patient should continue monthly self-breast exams. A clinical breast exam by your physician is recommended on an annual basis. This exam should not preclude additional follow-up of suspicious palpable abnormalities. Note on Yani scores and lifetime risk: 1. A Yani score greater than 3% is considered moderate risk. If this is the case, consider specialist referral to assess eligibility for a risk reducing agent. 2. If overall lifetime risk for the development of breast cancer is 20% or higher, the patient may qualify for future screening with alternating mammogram and breast MRI. Electronically signed and approved by: Montserrat Caceres M.D. Radiologist
== END | disposition home or self-care (01) ==
LOC: RADMAMWWP 16:26
PROVIDERS: ATTEND Family Medicine
DX: Z12.31 Encounter for screening mammogram for malignant neoplasm of breast (principal); Z78.0 Asymptomatic menopausal state; Z80.3 Family history of malignant neoplasm of breast
CPT/HCPCS: 77063; 77067

== ENCOUNTER → 2024-10-09 | Outpatient (CLI) | payer BC ==
[2024-10-09 10:35] LABS: Basophils # (A) 0.03 X 10*3/uL (0.00-0.10); Basophils % (A) 0.5 %; Eosinophils # (A) 0.05 X 10*3/uL (0.04-0.35); Eosinophils % (A) 0.8 %; HCT 43.3 % (37.2-46.3); HGB 13.3 g/dL (12.0-15.0); Lymphocytes # (A) 2.19 X 10*3/uL (0.90-5.00); Lymphocytes % (A) 34.5 %; MCHC 30.7 g/dL (32.0-37.0); MCV 91.2 FL (80.0-97.0); Mean Platelet Volume 10.9 FL (9.5-12.2); Monocytes # (A) 0.31 X 10*3/uL (0.20-1.00); Monocytes % (A) 4.9 %; NRBC Per 100 WBC 0 X 10*3/uL (0.00-0.01); Neutrophils # (A) 3.75 X 10*3/uL (1.80-7.70); Platelet Count 318 X 10*3/uL (140-440); RBC 4.75 X 10*6/uL (4.10-5.20); RDW 14.3 % (11.5-14.5); WBC 6.35 X 10*3/uL (4.50-10.00)
[2024-10-09 10:41] LABS: Microalbumin Creatinine Ratio <15 mg/g Cr (0-30)
[2024-10-09 10:58] LABS: ALT 22 U/L (8-44); AST 16 U/L (13-35); Albumin 4.1 g/dL (3.8-4.9); Albumin/Globulin Ratio 1.14 Ratio (1.60-3.17); Alkaline Phosphatase 80 U/L (41-126); BUN/Creat Ratio 26.67 Ratio (12.00-20.00); Calcium 9.5 mg/dL (8.7-10.3); Carbon Dioxide 24.6 mmol/L (21.6-31.8); Chloride 105 mmol/L (96-109); Globulin 3.6 g/dL (1.6-3.3); Glucose 92 mg/dL (70-110); LDL Cholesterol,Calculated 118.8 mg/dL (0.0-131.0); Potassium 4.2 mmol/L (3.5-5.5); Sodium 140 mmol/L (135-145); Total Bilirubin 0.7 mg/dL (0.3-1.2); Total Protein 7.7 g/dL (6.2-8.2); VLDL Calculation 17.46 mg/dL (5.00-40.00)
== END | disposition home or self-care (01) ==
LOC: LABWHC1 07:35
PROVIDERS: ATTEND Family Medicine
DX: Z00.00 Encounter for general adult medical examination without abnormal findings (principal); E11.9 Type 2 diabetes mellitus without complications
CPT/HCPCS: 36415; 80053; 80061; 82043; 82570; 84443; 85025

== ENCOUNTER → 2025-02-12 | Outpatient (CLI) | payer BC ==
--- NOTE | 2025-02-15 07:17 | MM ---
Reason for Exam: Screening (asymptomatic). Last mammogram was performed 1 year(s) and 1 month(s) ago. Patient History: Menarche at age 9. First Full-Term at age 28. Late child-bearing (after 28). Postmenopausal. Hormonal Contraceptives for 8 years from age 19 until age 27. 2004, Excisional Biopsy on the Left side. Maternal cousin had breast cancer, age 47. Maternal cousin had breast cancer, age 53. Risk Values: Yani 5 year model risk: 1.9%. NCI Lifetime model risk: 16.7%. Prior Study Comparison: 07/03/2021 Bilateral Screening Mammogram, [facility]. 11/05/2022 Bilateral MG 3D screening mammo w/cad, [facility]. 01/01/2024 Bilateral MG 3D screening mammo w/cad, [facility]. Tissue Density: There are scattered areas of fibroglandular density. Findings: Analyzed By CAD. Stable bilateral nodularity including 11 mm circumscribed mass in the right breast. A few scattered benign-appearing round calcifications bilaterally are redemonstrated. There is no suspicious new group of microcalcifications or new suspicious mass in either breast. Overall Assessment: Benign, BI-RAD 2 Management: Screening Mammogram of both breasts in 1 year. . Patient should continue monthly self-breast exams. A clinical breast exam by your physician is recommended on an annual basis. This exam should not preclude additional follow-up of suspicious palpable abnormalities. Note on Yani scores and lifetime risk: 1. A Yani score greater than 3% is considered moderate risk. If this is the case, consider specialist referral to assess eligibility for a risk reducing agent. 2. If overall lifetime risk for the development of breast cancer is 20% or higher, the patient may qualify for future screening with alternating mammogram and breast MRI. [facility], , 02/15/2025 7:15 AM. Electronically signed and approved by: Rex Chapin M.D.
== END | disposition home or self-care (01) ==
LOC: RADMAMWWP 16:08
PROVIDERS: ATTEND Family Medicine
DX: Z12.31 Encounter for screening mammogram for malignant neoplasm of breast (principal); R92.323 Mammographic fibroglandular density, bilateral breasts; R92.1 Mammographic calcification found on diagnostic imaging of breast; N63.10 Unspecified lump in the right breast, unspecified quadrant; Z78.0 Asymptomatic menopausal state; Z80.3 Family history of malignant neoplasm of breast; Z92.0 Personal history of contraception
CPT/HCPCS: 77063; 77067